=== PATIENT | male | born 2000 | race Caucasian/White ===

== ENCOUNTER 2021-07-10 17:13 | Emergency (ER) | payer BC ==
[2021-07-10 17:51] VITALS: BP 141/75; PULSE 86; TEMP 98; BMI 19.5
[2021-07-10] MEDS ORDERED: EMTRICITABINE 200MG/TENOFOVIR 300MG PO ONE (18:19)
[2021-07-10] MEDS ORDERED: RALTEGRAVIR POTASSIUM 400 MG TAB PO ONE (18:19)
[2021-07-10] MEDS ORDERED: HIV POST EXPOSURE PROPHYLAXIS KIT PO ONE (18:28)
[2021-07-10 20:14] LABS: HIV INTERPRETATION NEGATIVE (NEGATIVE)
== END 2021-07-10 18:44 | disposition home or self-care (01) ==
LOC: JERFT 17:13 → JER 17:13 → JERFT 18:44
DX: Z11.3 Encounter for screening for infections with a predominantly sexual mode of transmission (principal)
CPT/HCPCS: 36415; 86593; 86704; 86780; 86803; 87340; 87389; 87491; 87517; 87591; 99283-25